=== PATIENT | male | born 1960 | race Caucasian/White ===

== ENCOUNTER 2021-11-22 20:31 | Emergency (ER) | payer MEDICAID ==
[~2021-11-22] VITALS: Ht 172.7 cm; Wt 71.3 kg
[2021-11-23] MEDS ORDERED: IBUP-2029 MT (03:56)
[2021-11-23 04:36] VITALS: BP 122/78
== END 2021-11-23 04:36 | disposition home or self-care (01) ==
LOC: ER 20:31
DX: R51.9 Headache, unspecified (principal); H53.8 Other visual disturbances; R42 Dizziness and giddiness
CPT/HCPCS: 70486; 99284

== ENCOUNTER 2022-03-04 19:13 | Emergency (ER) | payer SELFPAY ==
[~2022-03-04] VITALS: Ht 170.2 cm; Wt 68.1 kg
[~2022-03-04 19:13] MED LIST: IBUP-2029 MT
[2022-03-04] MEDS ORDERED: IBUPROFEN 600MG TABLET PO STA (23:01)
[2022-03-04] MEDS ORDERED: CIPHCO RIGHT EAR (23:19)
[2022-03-04] MEDS ORDERED: IBUP-2029 PO (23:19)
[2022-03-04 23:41] VITALS: BP 131/74
[2022-03-06] MEDS ORDERED: IBUP-2029 MT (18:03)
[2022-03-06] MEDS ORDERED: CIPHCO RIGHT EAR (18:03)
== END 2022-03-04 23:42 | disposition home or self-care (01) ==
LOC: ER 19:13
DX: H60.91 Unspecified otitis externa, right ear (principal); E11.9 Type 2 diabetes mellitus without complications
CPT/HCPCS: 99282

== ENCOUNTER 2022-03-13 15:33 | Emergency (ER) | payer MEDICAID ==
[~2022-03-13] VITALS: Ht 167.6 cm; Wt 69.0 kg
[~2022-03-13 15:33] MED LIST changes: +CIPHCO RIGHT EAR; +IBUP-2029 PO
[2022-03-13 16:06] VITALS: BP 123/60
[2022-03-13] MEDS ORDERED: IBUPROFEN 400MG TABLET PO ONE (18:30)
[2022-03-13] MEDS ORDERED: CIPHCO RIGHT EAR (18:44)
[2022-03-13] MEDS ORDERED: AMOX-494 MT (18:44)
[2022-03-13] MEDS ORDERED: IBUP-2028 MT (18:44)
== END 2022-03-13 19:43 | disposition home or self-care (01) ==
LOC: ER 15:33
DX: H60.501 Unspecified acute noninfective otitis externa, right ear (principal); H66.91 Otitis media, unspecified, right ear
CPT/HCPCS: 99283

== ENCOUNTER 2022-11-17 19:52 | Emergency (ER) | payer SELFPAY ==
[~2022-11-17] VITALS: Ht 175.3 cm; Wt 66.3 kg
[~2022-11-17 19:52] MED LIST changes: +AMOX-494 MT; +IBUP-2028 MT
[2022-11-17 20:11] VITALS: TEMP 97.7; O2SAT 98
[2022-11-17] MEDS ORDERED: IBUPROFEN 600MG TABLET PO ONE (21:00)
[2022-11-17 21:06] VITALS: BP 126/59; PULSE 65; RESP 16
[2022-11-17] MEDS ORDERED: CLIN-194 MT (21:16)
[2022-11-17] MEDS ORDERED: CLINDAMYCIN HCL 150MG CAPSULE PO ONE (21:30)
== END 2022-11-17 22:01 | disposition home or self-care (01) ==
LOC: ER 19:52
DX: L03.115 Cellulitis of right lower limb (principal); E11.9 Type 2 diabetes mellitus without complications; Z79.899 Other long term (current) drug therapy
CPT/HCPCS: 73610; 73630; 99284

== ENCOUNTER 2022-11-19 11:58 | Emergency (ER) | payer MEDICAID ==
[~2022-11-19] VITALS: Ht 162.6 cm; Wt 59.1 kg
[~2022-11-19 11:58] MED LIST changes: +CLIN-194 MT
[2022-11-19 12:17] VITALS: BP 111/56; PULSE 84; RESP 16; TEMP 98.7; O2SAT 99
[2022-11-19] MEDS ORDERED: CEFTRIAXONE SODIUM 1 G/VIAL IM ONE (14:00)
[2022-11-19] MEDS ORDERED: SULF1TAB48 PO (14:00)
[2022-11-19] MEDS ORDERED: LIDOCAINE HCL 1% 20ML VIAL (Pyxis) INJ INFIL ONE (14:00)
== END 2022-11-19 14:55 | disposition home or self-care (01) ==
LOC: ER 11:58
DX: L03.115 Cellulitis of right lower limb (principal); E11.9 Type 2 diabetes mellitus without complications
CPT/HCPCS: 99283; 82962; 96372; J0696; J3490

== ENCOUNTER 2023-07-28 09:36 | Emergency (ER) | payer MEDICAID ==
[~2023-07-28] VITALS: Ht 180.3 cm; Wt 82.0 kg
[~2023-07-28 09:36] MED LIST changes: +SULF1TAB48 PO
[2023-07-28 09:42] VITALS: O2SAT 98
[2023-07-28] MEDS ORDERED: LIDOCAINE HCL/PF 1% 10 MG/ML 5ML VIAL INFIL ONE (10:00)
[2023-07-28 10:31] LABS: INR 0.9; PARTIAL THROMBOPLASTIN TIME 23.9 sec (23.4-31.0); PROTHROMBIN TIME 10.6 sec (9.6-11.0)
[2023-07-28] MEDS: TETANUS, DIPHTHERIA, PERTUSSIS VAC/PF 0.5ML (>10YR OLD) IM ONE (10:32)
[2023-07-28 10:36] LABS: BASOPHILS % 0.2 % (0.0-2.0); EOSINOPHILS % 0.7 % (0.0-5.0); HEMATOCRIT. 34.8 % (42.0-52.0); HEMOGLOBIN. 11.9 g/dL (14.0-18.0); MEAN CORPUSCULAR HEMOGLOBIN 29.5 pg (28.0-32.0); MEAN CORPUSCULAR HGB CONC 34.1 g/dL (31.0-37.0); MEAN CORPUSCULAR VOLUME 86.6 fL (80.0-94.0); MEAN PLATELET VOLUME 7.8 fl (7.4-10.4); MONOCYTES % 4.7 % (2.0-8.0); NEUTROPHILS % 79.4 % (40.0-76.0); PLATELET 190 x1000/uL (130-400); RED BLOOD CELL COUNT 4.02 mill/uL (4.7-6.1); RED CELL DISTRIBUTION WIDTH 14.7 % (11.6-14.6); WHITE BLOOD COUNT 6.1 x1000/uL (4.5-11.0)
[2023-07-28] MEDS: ONDANSETRON HCL 4MG/2ML INJ IV ONE (10:41)
[2023-07-28] MEDS: MORPHINE SULFATE 4 MG/ML INJ (FOR IV/IM USE) IV ONE ×2 (10:42→14:58)
[2023-07-28 10:59] LABS: ALANINE AMINOTRANSFERASE 32 IU/L (10-49); ASPARTATE AMINOTRANSFERASE 27 IU/L (<34); BILIRUBIN TOTAL 0.7 mg/dL (0.1-1.0); CALCIUM 8.6 mg/dL (8.7-10.4); CARBON DIOXIDE 25 mEq/L (21-32); CHLORIDE 107 mEq/L (98-107); GLUCOSE 234 mg/dL (70-105); POTASSIUM 3.9 mEq/L (3.5-5.1); PROTEIN TOTAL 6.6 g/dL (6.0-8.3); SODIUM 138 mEq/L (136-145); UREA NITROGEN BLOOD 17 mg/dL (9-23)
[2023-07-28] MEDS ORDERED: TETRACAINE 0.5% OPHTH DROPS 4ML LEFTEYE ONE ×2 (12:45)
[2023-07-28] MEDS: MORPHINE SULFATE 4 MG/ML INJ (FOR IV/IM USE) IV NR (14:59)
[2023-07-28 18:45] VITALS: BP 142/71; PULSE 61; RESP 17; TEMP 98.3
== END 2023-07-28 19:19 | disposition short-term general hospital (02) ==
LOC: ER 09:36
DX: S02.92XA Unspecified fracture of facial bones, initial encounter for closed fracture (principal); S01.01XA Laceration without foreign body of scalp, initial encounter; E11.9 Type 2 diabetes mellitus without complications; Y04.0XXA Assault by unarmed brawl or fight, initial encounter; Y93.89 Activity, other specified; Y92.811 Bus as the place of occurrence of the external cause; Y99.9 Unspecified external cause status
CPT/HCPCS: 80053; 85025; 85610; 85730; 36415; 71045; 70450; 70486; 72125; 90715; 12002; 90471; 96374; 96375; 96376; 99285; J3490; J2405; J2270; Z7610 ×5

== ENCOUNTER 2023-08-15 12:40 | Emergency (ER) | payer MEDICAID ==
[~2023-08-15] VITALS: Ht 167.6 cm; Wt 68.0 kg
[2023-08-15 12:47] VITALS: BP 100/58; PULSE 90; RESP 18; TEMP 98.3; O2SAT 99
== END 2023-08-15 13:16 | disposition home or self-care (01) ==
LOC: ER 12:40
DX: S01.01XD Laceration without foreign body of scalp, subsequent encounter (principal); E11.9 Type 2 diabetes mellitus without complications; Z98.890 Other specified postprocedural states; X58.XXXD Exposure to other specified factors, subsequent encounter
CPT/HCPCS: 99281

== ENCOUNTER 2023-10-06 11:45 | Emergency (ER) | payer MEDICAID ==
[~2023-10-06] VITALS: Ht 167.6 cm; Wt 70.0 kg
[2023-10-06 12:28] VITALS: O2SAT 98
[2023-10-06 15:51] VITALS: BP 134/75; PULSE 79; RESP 16; TEMP 98.6
== END 2023-10-06 15:51 | disposition home or self-care (01) ==
LOC: ER 11:45
DX: Z00.00 Encounter for general adult medical examination without abnormal findings (principal); Z56.0 Unemployment, unspecified
CPT/HCPCS: 99281; Z7610

== ENCOUNTER 2024-12-31 11:21 | Emergency (ER) | payer MEDICAID ==
[~2024-12-31] VITALS: Ht 170.2 cm; Wt 68.0 kg
[2024-12-31 11:29] VITALS: O2SAT 89
[2024-12-31 11:34] VITALS: BP 139/82; PULSE 79; RESP 18; TEMP 36.8; O2SAT 98
[2024-12-31] MEDS ORDERED: BO1 TP (15:10)
== END 2024-12-31 16:03 | disposition home or self-care (01) ==
LOC: ER 11:21
DX: S21.119D Laceration without foreign body of unspecified front wall of thorax without penetration into thoracic cavity, subsequent encounter (principal); E11.9 Type 2 diabetes mellitus without complications; Z98.890 Other specified postprocedural states; Z79.899 Other long term (current) drug therapy; X58.XXXD Exposure to other specified factors, subsequent encounter
CPT/HCPCS: 99282

== ENCOUNTER 2025-01-11 10:36 | Emergency (ER) | payer MEDICAID ==
[~2025-01-11] VITALS: Ht 170.2 cm; Wt 68.0 kg
[~2025-01-11 10:36] MED LIST changes: +BO1 TP
[2025-01-11 10:41] VITALS: O2SAT 98
[2025-01-11 11:11] LABS: BASOPHILS % 0.6 % (0.0-2.0); EOSINOPHILS % 3.3 % (0.0-5.0); HEMATOCRIT. 39.1 % (42.0-52.0); HEMOGLOBIN. 12.8 g/dL (14.0-18.0); LYMPHOCYTES % 25.9 % (20.0-50.0); MEAN PLATELET VOLUME 8.5 fl (7.4-10.4); MONOCYTES % 7.3 % (2.0-8.0); NEUTROPHILS % 62.9 % (40.0-76.0); PLATELET 182 x1000/uL (130-400); RED BLOOD CELL COUNT 4.52 mill/uL (4.7-6.1); RED CELL DISTRIBUTION WIDTH 14.9 % (11.6-14.6)
[2025-01-11 11:28] LABS: TROPONIN I HIGH SENSITIVITY < 4 ng/L (3.0-53); UREA NITROGEN BLOOD 15 mg/dL (9-23)
[2025-01-11 11:34] LABS: CREATININE 1.5 mg/dL (0.6-1.3)
[2025-01-11 12:12] VITALS: BP 133/67; PULSE 70; RESP 18; TEMP 36.7; O2SAT 98
== END 2025-01-11 12:14 | disposition home or self-care (01) ==
LOC: ER 10:36
DX: R07.89 Other chest pain (principal); E11.9 Type 2 diabetes mellitus without complications; Z95.1 Presence of aortocoronary bypass graft; Z98.890 Other specified postprocedural states; Z79.899 Other long term (current) drug therapy
CPT/HCPCS: 36415; 71045; 80048; 83735; 84484; 85025; 93005; 99285

== ENCOUNTER 2025-01-31 09:22 | Emergency (ER) | payer MEDICAID ==
[~2025-01-31] VITALS: Ht 170.2 cm; Wt 80.0 kg
[~2025-01-31 09:22] MED LIST changes: +IBUP-1455 MT; +IBUP-1455 PO; -IBUP-2029 MT; -IBUP-2029 PO
[2025-01-31 09:29] VITALS: O2SAT 98
[2025-01-31 10:37] LABS: BASOPHILS % 0.4 % (0.0-2.0); EOSINOPHILS % 2.9 % (0.0-5.0); HEMATOCRIT. 39.1 % (42.0-52.0); HEMOGLOBIN. 12.8 g/dL (14.0-18.0); LYMPHOCYTES % 21.6 % (20.0-50.0); MEAN PLATELET VOLUME 8.0 fl (7.4-10.4); MONOCYTES % 9.0 % (2.0-8.0); NEUTROPHILS % 66.1 % (40.0-76.0); PLATELET 182 x1000/uL (130-400); RED BLOOD CELL COUNT 4.57 mill/uL (4.7-6.1); RED CELL DISTRIBUTION WIDTH 14.9 % (11.6-14.6)
[2025-01-31 10:51] LABS: CREATININE 1.0 mg/dL (0.6-1.3); UREA NITROGEN BLOOD 11 mg/dL (9-23)
[2025-01-31 10:52] LABS: TROPONIN I HIGH SENSITIVITY < 4 ng/L (3.0-53)
[2025-01-31 10:55] LABS: ASPARTATE AMINOTRANSFERASE 17 IU/L (<34); BILIRUBIN DIRECT 0.1 mg/dL (<=3.0); BILIRUBIN TOTAL 0.5 mg/dL (0.1-1.0); PROTEIN TOTAL 6.6 g/dL (6.0-8.3)
[2025-01-31] MEDS: KETOROLAC 30MG/ML VIAL IM ONE (11:30)
[2025-01-31 11:34] VITALS: BP 126/66; PULSE 60; RESP 18; TEMP 36.7; O2SAT 99
== END 2025-01-31 11:37 | disposition home or self-care (01) ==
LOC: ER 09:44
DX: R10.84 Generalized abdominal pain (principal); E11.9 Type 2 diabetes mellitus without complications; Z98.890 Other specified postprocedural states; Z79.899 Other long term (current) drug therapy
CPT/HCPCS: 36415; 71045; 74176; 80048; 80076; 84484; 85025; 93005; 99285